=== PATIENT | male | born 1995 | race African-American/Black ===

== ENCOUNTER 2020-02-19 23:55 | Emergency (ER) | payer SELFPAY ==
[2020-02-20] MEDS ORDERED: Proparacaine 0.5% Opth 15 ML BOT ONE (00:08)
[2020-02-20] MEDS ORDERED: Fluorescein Opthalmic Strip ONE (00:08)
== END 2020-02-20 00:23 | disposition home or self-care (01) ==
LOC: NAV ERS 23:55
DX: H10.9 Unspecified conjunctivitis (principal); F17.210 Nicotine dependence, cigarettes, uncomplicated
CPT/HCPCS: 99283

== ENCOUNTER 2023-06-13 14:56 | Emergency (ER) | payer SELFPAY ==
[2023-06-13] MEDS ORDERED: Sodium Chloride 0.9% 1,000 ML ONE ×3 (15:56→17:42)
[2023-06-13 16:07] LABS: #Basophils 0.1 thou/uL (0.0-0.2); #Eosinphils 0.1 thou/uL (0.0-0.7); #Lymphocytes 1.4 thou/uL (1.20-3.40); #Monocytes 0.7 thou/uL (0.11-0.59); #Neutrophils 2.2 thou/uL (1.40-6.50); %Basophils 1.7 % (0.0-1.0); %Eosinophils 3.2 % (0.0-10.0); %Lymphocytes 31.4 % (21.0-51.0); %Monocytes 16.1 % (0.0-10.0); %Neutrophils 47.6 % (42.0-75.0); Hematocrit 44.5 % (42.0-52.0); Hemoglobin 14.3 g/dL (14.0-18.0); Mean Corpuscular HGB CONC 32.2 g/dL (32.0-36.0); Mean Corpuscular Hemoglobin 25.7 pg (27.0-31.0); Mean Corpuscular Volume 79.8 fl (78.0-98.0); Mean Platelet Volume 8.4 fL (7.4-10.4); Platelet Count 248 10x3/uL (130-400); RBC Distribution Width 11.3 % (11.5-14.5); Red Blood Cell (RBC) Count 5.57 mill/uL (4.70-6.10); White Blood Cell (WBC) Count 4.5 10x3/uL (4.8-10.8)
[2023-06-13 16:17] LABS: Bilirubin Negative (Negative); Blood, Urine Negative (Negative); Clarity Clear (Clear); Glucose, Urine (Dipstick) >=1000 mg/dL (Negative); Ketone, Urine Negative (Negative); Leukocyte Negative (Negative); Nitrite Negative (Negative); Protein, Urine (Dipstick) Negative (Neg-Trace); Urobilinogen 0.2 mg/dL (Less than 2); pH, Urine 6.5 (5.0-9.0)
[2023-06-13 16:18] LABS: CAUTI Indications for Culture Alt mental st,lethar; Specific Gravity, Urine 1.006 (1.002-1.036)
[2023-06-13 16:26] LABS: ALT (SGPT) 38 U/L (8-55); AST (SGOT) 36 U/L (5-34); Albumin 4.8 g/dL (3.5-5.0); Alkaline Phosphatase 152 U/L (40-110); Anion Gap 16 mmol/L (10-20); BUN (Urea Nitrogen) 15 mg/dL (8.9-20.6); Calc. Creatinine Clearance 0 mL/min (70-130); Calcium 10.6 mg/dL (7.8-10.44); Carbon Dioxide 25 mmol/L (22-29); Chloride 82 mmol/L (98-107); Estimated GFR 55; Globulin 4.4 g/dL (2.4-3.5); Potassium 5.3 mmol/L (3.5-5.1); Protein, Total 9.2 g/dL (6.0-8.3)
[2023-06-13 16:30] LABS: Bacteria/HPF Rare-Few HPF (None Seen); RBC/HPF 0-3 HPF (0-3); Squamous Epithelial 0-3 HPF (0-3); WBC/HPF None Seen HPF (0-3)
[2023-06-13 16:31] LABS: Urine Culture Reflex No No
[2023-06-13 16:32] LABS: Amphetamine Not Detected (NotDetected); Barbiturates Screen Not Detected (NotDetected); Benzodiazepine Screen Not Detected (NotDetected); Cocaine Metabolite Screen Not Detected (NotDetected); Methadone Not Detected (NotDetected); Methamphetamine Not Detected (NotDetected); Opiate Screen Not Detected (NotDetected); Oxycodone Screen Not Detected (NotDetected); Phencyclidine (PCP) Not Detected (NotDetected); THC/Cannabinoid Screen Detected (NotDetected); Tricyclic Screen Not Detected (NotDetected)
[2023-06-13 16:57] LABS: Glucose 873 mg/dL (70-105); Sodium 118 mmol/L (136-145)
[2023-06-13] MEDS ORDERED: Insulin Regular 300 UNITS/3 ML VIAL ONE (17:42)
[2023-06-13 18:13] LABS: Base Excess-Venous 0.5 mmol/L (-2.0 to 3.0); Bicarbonate (HCO3v) 26.6 mmol/L (22.0-28.0); Chloride 97 mmol/L (98-107); Potassium 5.1 mmol/L (3.5-5.1); Sodium 130 mmol/L (138-145); vO2 Saturation-calc 58.5 % (60.0-85.0)
[2023-06-13] MEDS ORDERED: INSULIN REGULAR IN 0.9 % NACL 100 UNITS/100 ML BAG ONE (18:29)
[2023-06-13] MEDS ORDERED: Ketorolac Tromethamine 30 MG/ML VIAL ONE (18:39)
[2023-06-13 18:43] LABS: Anion Gap 17 mmol/L (10-20); BUN (Urea Nitrogen) 14 mg/dL (8.9-20.6); Calc. Creatinine Clearance 0 mL/min (70-130); Calcium 10.2 mg/dL (7.8-10.44); Carbon Dioxide 23 mmol/L (22-29); Chloride 94 mmol/L (98-107); Estimated GFR 75; Sodium 129 mmol/L (136-145)
[2023-06-13 18:57] LABS: Glucose 600 mg/dL (70-105)
[2023-06-13 19:40] LABS: Anion Gap 16 mmol/L (10-20); BUN (Urea Nitrogen) 12 mg/dL (8.9-20.6); Calc. Creatinine Clearance 0 mL/min (70-130); Calcium 10.1 mg/dL (7.8-10.44); Carbon Dioxide 22 mmol/L (22-29); Chloride 98 mmol/L (98-107); Estimated GFR 88; Potassium 4.1 mmol/L (3.5-5.1); Sodium 132 mmol/L (136-145)
[2023-06-13 19:43] LABS: Glucose 441 mg/dL (70-105)
== END 2023-06-13 19:25 | disposition short-term general hospital (02) ==
LOC: NAV ERS 14:56
DX: E11.65 Type 2 diabetes mellitus with hyperglycemia (principal); E86.0 Dehydration; F17.210 Nicotine dependence, cigarettes, uncomplicated
CPT/HCPCS: 36415; 36416; 80053; 80306; 81001; 82010; 82330; 82803; 85025; 96361; 96374; 96376; J1815; J1885; J7050